=== PATIENT | female | born 1975 | race Caucasian/White ===

== ENCOUNTER 2017-03-22 18:58 | Emergency (ER) | payer BC ==
--- NOTE | 2017-03-22 19:13 | UC ---
Lower Extremity/Ankle HPI - HPI Summary HPI Summary: Patient stibbed the right 5th toe, nail is bloody, pain extends down the 5th metatarsal. 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 Metronidazole [From Flagyl] Allergy Intermediate Hives Verified 03/22/17 19:25 Home Medications: Home Medications Folic Acid TAB* [Folvite TAB*] 1 tab DAILY 03/22/17 [History Confirmed 03/22/17] Hydroxychloroquine TAB* [Plaquenil TAB*] 200 mg BID 03/22/17 [History Confirmed 03/22/17] Methotrexate TAB* 8 tab WEEKLY 03/22/17 [History Confirmed 03/22/17] PMH/Surg Hx/FS Hx/Imm Hx Previously Healthy: Yes - Surgical History Surgical History: None - Family History Known Family History: Positive: Hypertension - Social History Alcohol Use: None Substance Use Type: None Smoking Status (MU): Former Smoker When Did the Patient Quit Smoking/Using Tobacco: 2005 Review of Systems Constitutional: Negative Skin: Bruising - of right little toe Eyes: Negative ENT: Negative Respiratory: Negative Cardiovascular: Negative Gastrointestinal: Negative Genitourinary: Negative Motor: Negative Musculoskeletal: Arthralgia, Edema, Myalgia Neurological: Negative Psychological: Negative Is Patient Immunocompromised?: No All Other Systems Reviewed And Are Negative: Yes Physical Exam Triage Information Reviewed: Yes Appearance: Well-Appearing, Well-Nourished, Pain Distress Vital Signs Reviewed: Yes Eye Exam: Normal ENT Exam: Normal Dental Exam: Normal Neck exam: Normal Respiratory Exam: Normal Respiratory: Positive: Chest non-tender, Lungs clear, Normal breath sounds Cardiovascular Exam: Normal Cardiovascular: Positive: RRR, No Murmur, Pulses Normal Abdominal Exam: Normal Abdomen Description: Positive: Nontender, No Organomegaly, Soft Bowel Sounds: Positive: Present Musculoskeletal Exam: Normal Musculoskeletal: Positive: Strength Intact, ROM Intact, No Edema Neurological Exam: Normal Neurological: Positive: Alert, Muscle Tone Normal Psychological Exam: Normal Skin Exam: Normal Lower Extremity Course/Dx - Course Course Of Treatment: hx obtained, exam performed ,meds reviewed, xray obtained neg - Differential Dx/Diagnosis Differential Diagnosis/HQI/PQRI: Contusion, Dislocation, Fracture (Closed), Sprain, Strain Provider Diagnoses: 5th toe contusion Discharge - Discharge Plan Condition: Stable Disposition: HOME Patient Education Materials: Foot Contusion (ED) Referrals: Elizabeth Hazel MD [Primary Care Provider] - Additional Instructions: 1. use the post op shoe for support 2. ibuprofen for pain 3. soak the foot and keep clean, you may lose the nail.let if fall off on its own. 4. your xray was negative for any fracture 5. rest and elevate as much as possible
--- NOTE | 2017-03-22 19:28 | RAD ---
HISTORY: Right foot fifth digit pain, trauma COMPARISONS: October 24, 2015 VIEWS: 3, Frontal, lateral, and oblique views of the right foot FINDINGS: BONE DENSITY: Normal. BONES: Again noted are sharply marginated erosions at the base of the fifth metatarsal, stable from the previous examination. There is nonacute displaced fracture or dislocation. Calcaneal enthesophytes are noted. JOINTS: There is no arthropathy. ALIGNMENT: There is no dislocation. SOFT TISSUES: Unremarkable. OTHER FINDINGS: None. IMPRESSION: STABLE SHARPLY MARGINATED EROSIONS OF THE BASE OF THE FIFTH METATARSAL. NO ACUTE OSSEOUS INJURY. IF SYMPTOMS PERSIST, RECOMMEND REPEAT IMAGING
[2017-03-22 19:32] VITALS: BP 128/81
== END 2017-03-22 19:46 | disposition home or self-care (01) ==
LOC: UCCORT 18:58
DX: S90.121A Contusion of right lesser toe(s) without damage to nail, initial encounter (principal); W22.09XA Striking against other stationary object, initial encounter; Y93.9 Activity, unspecified; Y92.9 Unspecified place or not applicable; Z87.891 Personal history of nicotine dependence
CPT/HCPCS: 99213; G0463

== ENCOUNTER 2018-01-29 13:07 | Emergency (ER) | payer BC ==
--- OUTSIDE RECORDS SUMMARY | 2018-01-29 13:16 | XMS REPORT ---
:1975 Author Organization [facility] Address [address] [place] [address] Care Team Providers Name Role Phone Cindy Garay Unavailable Unavailable PROBLEMS Type Condition ICD9-CM OCZ11-RQ Onset Condition SNOMED Code Code Code Dates Status Problem Phlebitis and I80.9 Active 197189547 thrombophlebitis of unspecified site Problem Polycystic ovarian E28.2 Active 38131697 syndrome Problem Lichen simplex L28.0 Active 12060674 chronicus Problem Nontoxic goiter, E04.9 Active 540027272 unspecified Problem Obesity, unspecified E66.9 Active 402088587 Problem Excessive and N92.0 Active 268951971 frequent menstruation with regular cycle Problem Subacute and chronic N76.3 Active 044414961 vulvitis ALLERGIES No Information ENCOUNTERS Encounter Location Date Diagnosis [facility] 103 Nov, [place] [id number] [facility] 103 Nov, Lichen simplex chronicus OBGYN [facility], L28.0 [place] [id number] [facility] 103 Nov, [place] [id number] [facility] 103 Dec, Encounter for OBGYN [facility], gynecological examination [place] [id number] (general) (routine) without abnormal findings Z01.419 ; Lichen simplex chronicus L28.0 ; Excessive and frequent menstruation with regular cycle N92.0 ; Encounter for screening mammogram for malignant neoplasm of breast Z12.31 and Polycystic ovarian syndrome E28.2 [facility] 103 Dec, OBGYN [facility], [place] [id number] [facility] 103 Nov, Excessive and frequent OBGYN [facility], menstruation with regular [place] 4739[address] cycle N92.0 [facility] [place] [facility] 103 Oct, OBGYN [facility], [place] [id number] [facility] 103 Oct, Lichen simplex chronicus OBGYN [facility], L28.0 and Excessive and [place] 761178148 frequent menstruation with regular cycle N92.0 [place] [facility] 103 Aug, Noninflammatory disorder OBGYN [facility], of vulva and perineum, [place] [id number] unspecified N90.9 [place] [facility] 103 Aug, Excessive and frequent OBGYN [facility], menstruation with regular [place] 9264522[address] cycle N92.0 and Subacute and chronic vulvitis N76.3 [facility] [address] [place], Aug, [facility] [place] [id number] [facility] Aug, Encounter for other OBGYN [facility], general counseling and [place] [id number] advice on contraception Z30.09 [place] [facility] 103 Aug, Excessive and frequent OBGYN [facility], menstruation with regular [place] [address] cycle N92.0 [place] [facility] 103 July, OBGYN [facility], [place] [id number] [place] [facility] 103 July, Excessive and frequent OBGYN [facility], menstruation with regular [place] [address]78[address] cycle N92.0 [place] [facility] 103 July, Excessive and frequent OBGYN [facility], menstruation with [place] [address] irregular cycle N92.1 [place] [facility] 103 July, [place] [id number] [facility] 103 July, Excessive and frequent OBGYN [facility], menstruation with regular [place] 343810675 cycle N92.0 ; Dysuria R30.0 and Acute vaginitis N76.0 [place] [facility] 103 Jun, [place] [id number] [facility] 103 Jan, [place] [id number] [place] [facility] 103 Jan, [place] [id number] [place] [facility] 103 Jan, Irregular menstruation, OBGYN [facility], unspecified N92.6 ; [place] [id number] Encounter for screening for infections with a predominantly sexual mode of transmission Z11.3 and Subacute and chronic vulvitis N76.3 [place] [facility] 103 18 Sep, 2015 [facility] [place] [id number] advice on contraception Z30.09 [place] [facility] 21 Aug, 2015 Encounter for [facility], gynecological examination [place] [id number] (general) (routine) without abnormal findings Z01.419 ; Encounter for screening mammogram for malignant neoplasm of breast Z12.31 ; Nontoxic goiter, unspecified E04.9 and Obesity, unspecified E66.9 [place] [facility] 103 13 Aug, 2015 [place] [id number] [place] [facility] 103 Dec, [place] [id number] [facility] 103 Nov, [facility] 112.1 [place] [id number] [place] [facility] 103 Oct, VAGINAL DISCHARGE 623.5 OBGYN [facility], and Vulvitis NOS 616.10 [place] [id number] [place] [facility] 103 Mar, ROUTINE LEARN TO SWIM INSTRUCTOR EXAMINATION OBGYN [facility], V72.31 ; STD Screen V74.5 [place] [id number] and CONTRACEPTIVE MANGMT NOS V25.9 [place] [facility] 103 Mar, [place], [place] [id number] [facility] 103 Mar, [place], [place] [id number] [facility] 103 Dec, [place] [id number] [facility] 103 Dec, [place] [id number] [place] [facility] 103 Dec, STD Screen V74.5 and OBGYN [facility], Infection by Trichomonas [place] [id number] NOS 131.9 [place] [facility] 103 Oct, [place] [id number] [facility] 103 Oct, [place] [id number] [facility] [place] [facility] 103 Aug, [place] [id number] [place] [facility] 103 Aug, Vaginitis 616.10 and OBGYN [facility], Candidal vulvovaginitis [place] [id number] 112.1 [place] [facility] 103 July, VAGINAL DISCHARGE 623.5 [place], [place] [id number] [facility] [place] [facility] 103 Apr, [place], [place] [id number] [facility] 103 Mar, Abnormal findings on OBGYN [facility], radiological or other [place] [id number] exams of body structure, NEC 793.99 and BMI 39.0-39.9,ADULT V85.39 [facility] 103 Mar, Abnormal findings on OBGYN [facility], radiological or other [place] [id number] exams of body structure, NEC 793.99 and BMI 40 AND OVER,ADULT V85.4 [facility] 103 Jan, ROUTINE LEARN TO SWIM INSTRUCTOR EXAMINATION OBGYN [facility], V72.31 ; BMI [place] [id number] 39.0-39.9,ADULT V85.39 and Abnormal findings on radiological or other exams of body structure, NEC 793.99 [facility] 103 Jan, ROUTINE LEARN TO SWIM INSTRUCTOR EXAMINATION OBGYN [facility], V72.31 ; PAP SMEAR W/O LEARN TO SWIM INSTRUCTOR [place] [id number] EXAM V76.2 and SCREEN MAMMOGRAM NEC V76.12 [facility] 103 Dec, Metrorrhagia 626.6 ; OBGYN [facility], Endometrial polyp 621.0 [place] [id number] and Polycystic ovaries 256.4 [facility] 103 Aug, Metrorrhagia 626.6 ; OBGYN [facility], Endometrial polyp 621.0 [place] [id number] and Polycystic ovaries 256.4 [facility], [facility] [address] [place], July, Medical Center [place] [id number] [facility] 103 July, Metrorrhagia 626.6 ; OBGYN [facility], Endometrial polyp 621.0 [place] [id number] and Polycystic ovaries 256.4 [facility] 103 Jun, OBGYN [facility], [place] [id number] [facility] 103 Jun, Metrorrhagia 626.6 ; OBGYN [facility], Endometrial polyp 621.0 [place] [id number] and Polycystic ovaries 256.4 [place] [facility] 103 Jun, IRREGULAR MENSTRUATION OBGYN [facility], 626.4 [place] [id number] [place] [facility] 103 Jun, IRREGULAR MENSTRUATION OBGYN [facility], 626.4 [place] [id number] [place] [facility] 103 Jun, IRREGULAR MENSTRUATION OBGYN [facility], 626.4 and Endometrial [place] [id number] polyp 621.0 [place] [facility] 103 May, IRREGULAR MENSTRUATION OBGYN [facility], 626.4 [place] [id number] [place] [facility] 103 Dec, ROUTINE LEARN TO SWIM INSTRUCTOR EXAMINATION OBGYN [facility], V72.31 [place] [id number] [place] [facility] 103 Nov, [place] [id number] [place] [facility] 103 Oct, [place], [place] [id number] [facility] [place] [facility] 103 July, Yeast infection 112.9 [place]BG[place], [place] [id number] [place] [facility] 103 Oct, ROUTINE LEARN TO SWIM INSTRUCTOR EXAMINATION OBGYN [facility], V72.31 [place] [id number] [place] [facility] 103 Aug, BMI 38.0-38.9,ADULT V85.38 [place] [id number] [place] [facility] 103 Aug, BMI 39.0-39.9,ADULT V85.39 OBGYN [facility], and Polycystic ovaries [place] [id number] 256.4 [place] [facility] 103 Aug, ROUTINE LEARN TO SWIM INSTRUCTOR EXAMINATION OBGYN [facility], V72.31 and BMI [place] [id number] 38.0-38.9,ADULT V85.38 [place] [facility] 103 Oct, OBGYN [facility], [place] [id number] [place] [facility] 103 Aug, Polycystic ovaries 256.4 OBGYN [facility], and BMI 40 AND OVER,ADULT [place] [id number] V85.4 [place] [facility] 103 Aug, BMI 40 AND OVER, ADULT OBGYN [facility], V85.4 and Polycystic [place] [id number] ovaries 256.4 [place] [facility] 103 Aug, ROUTINE LEARN TO SWIM INSTRUCTOR EXAMINATION OBGYN [facility], V72.31 and BMI 40 AND [place] 782331040 OVER,ADULT V85.4 [place] [facility] 103 Oct, Dysuria 788.1 and Acute OBGYN [facility], vaginitis 616.10 [place] [id number] [place] [facility] 103 Aug, [place] [id number] [place] [facility] 103 Aug, ROUTINE LEARN TO SWIM INSTRUCTOR EXAMINATION OBGYN [facility], V72.31 ; Hypertension [place] [id number] 401.9 ; Hyperlipidemia 272.4 and Depression, major NOS 296.00 [place] [facility] 103 Aug, [place] [id number] [place] [facility] 103 July, Lichen sclerosus et OBGYN [facility], atrophicus NOS 701.0 [place] [id number] [place] [facility] 103 Jan, [place] [id number] [place] [facility] 103 Nov, [place] [id number] [place] [facility] 103 Oct, [place] [id number] [place] [facility] 103 Oct, O[place] [id number] [place] [facility] 103 Aug, [facility]rocystic disease of [facility], breast 610.1 and [place] [id number] DEPRESSION 648.44 [place] [facility] 103 Aug, [place] [id number] [place] [facility] 103 Aug, ROUTINE LEARN TO SWIM INSTRUCTOR EXAMINATION OBN [facility], V72.31 ; Incontinence [place] [id number] 788.30 and DEPRESSION 648.44 [place] [facility] 103 Apr, [place] [id number] [place] [facility] 103 Apr, CARE- ROUTINE OBN [facility], V24.2 and Hypertension [place] [id number] 401.9 [place] [facility] 103 Mar, [place] [id number] [place] [facility] 103 Mar, Cracked nipple, OBN [facility], 676.14 ; Hypertension [place] [id number] 401.9 and Rash 782.1 [place] [facility] 103 Mar, [place] [id number] [place] [facility] 103 Mar, [facility]ohydramnios, [facility], antepartum 658.03 and [place] [id number] Chronic hypertension NOS complicating , antepartum 642.03 [facility] 103 Mar, Oligohydramnios, [facility], antepartum 658.03 and [place] [id number] Chronic hypertension NOS complicating , antepartum 642.03 [facility] 103 Mar, [place] [id number] [place] [facility] 103 Mar, [place] [id number] [place] [facility] 103 Mar, [place] [id number] [place] [facility] 103 Mar, Oligohydramnios, [facility], antepartum 658.03 and [place] [id number] Chronic hypertension NOS complicating , antepartum 642.03 [place] [facility] 103 Mar, [place] [id number] [place] [facility] 103 Mar, Hypertension 401.9 and [facility], Chronic hypertension NOS [place] [id number] complicating , antepartum 642.03 [place] [facility] 103 Jan, [place] [id number] [place] [facility] 103 Jan, Chronic hypertension NOS [facility], complicating , [place] [id number] antepartum 642.03 and Hypertension 401.9 [place] [facility] 103 Jan, [place] [id number] [place] [facility] 103 Jan, [place] [id number] [place] [facility] 103 Jan, [place] [id number] [facility] 103 Jan, Hypertension 401.9 and [facility], Chronic hypertension NOS [place] [id number] complicating , antepartum 642.03 [facility] 103 Jan, [place] [id number] [facility] 103 Jan, Hypertension 401.9 [place] [id number] [place] [facility] 103 Jan, UTI/Vaginitis in [facility], , antepartum [place] [id number] condition or complication 646.63 [place] [facility] 103 Jan, [place], [place] [id number] [place] [facility] 103 Jan, [place], [place] [id number] [facility] 103 Jan, [place], [place] [id number] [place] [facility] 103 Jan, [place] [id number] [place] [facility] 103 Jan, [place] [id number] [place] [facility] 103 Jan, [place] [id number] [place] [facility] 103 Jan, [place] [id number] [place] [facility] 103 Jan, [place] [id number] [place] [facility] 103 Jan, Hypertension 401.9 [place] [id number] [facility] 103 Jan, Hypertension 401.9 [place] [id number] [place] [facility] 103 Dec, [place] [id number] [place] [facility] 103 Dec, [place] [id number] [place] [facility] 103 Dec, [place] [id number] [facility] 103 Nov, [place] [id number] [place] [facility] 103 15 Nov, 2005 [place] [id number] [place] [facility] 103 Nov, /OTHER ANTE. OBGYN [facility], SCREENING V28.8 [place] [id number] [place] [facility] 103 Oct, /OTHER ANTE. OBGYN [facility], SCREENING V28.8 [place] [id number] [place] [facility] 103 Aug, Hypertension 401.9 and do OBGYN [facility], not use UNCERTAIN [place] [id number] GEST./CONFIRM VIABILITY 656.83 [place] [facility] 103 Aug, [place] [id number] [place] [facility] 103 Aug, [place] [id number] [place] [facility] 103 Aug, [place] [id number] [place] [facility] 103 Aug, [place] [id number] UNKNOWN Mar, [place] [facility] 103 Jan, Lichen sclerosus et OBGYN [facility], atrophicus of the vulva [place] [id number] 624.0 [place] [facility] 103 Jan, Lichen sclerosus et OBGYN [facility], atrophicus of the vulva [place] [id number] 624.0 and Rash 782.1 UNKNOWN Jan, [place] [facility] 103 Jan, DERMATITIS NEC 692.89 and OBGYN [facility], Boil of skin and [place] 444532989 subcutaneous tissue NOS 680.9 [place] [facility] 103 Jan, OVARIAN CYST NEC/ NOS 620.2 [place], [place] [id number] [facility] 103 Jan, Vaginitis and OBGYN [facility], vulvovaginitis, [place] [id number] unspecified 616.10 [facility] 103 Dec, OVARIAN CYST NEC/ NOS 620.2 OBGYN [facility], and Hypertension 401.9 [place] [id number] [facility] 103 Dec, OVARIAN CYST NEC/ NOS 620.2 OBGYN [facility], [place] [id number] [facility] 103 Dec, Well Adult exam V 70.0 ; OBGYN [facility], ROUTINE LEARN TO SWIM INSTRUCTOR EXAMINATION [place] [id number] V72.31 ; OVARIAN CYST NEC/NOS 620.2 ; Infertility, female, of other specified origin 628.8 and Hypertension 401.9 IMMUNIZATIONS No Known Immunizations SOCIAL HISTORY Never Assessed REASON FOR REFERRAL FUNCTIONAL STATUS PLAN OF CARE VITAL SIGNS MEDICATIONS Unknown Medications PROCEDURES No Known procedures RESULTS No Results REASON FOR VISIT lmtcb 12/23, LMB 01/02/18 Insurance Providers [facility] Health Member Patient Patient Patient Patient Patient Subscriber Subscriber Subscriber Group Insurance Plan Plan Plan Plan ID Relationship Address Phone Name Date of ID Name Date of No Type Insurance Insurance Insurance Coverage to Subscriber Address Phone Name Dates [facility] [phone] [facility] self Leila [id number] [place] [address] [facility] [address] MEDICAL (GENERAL) HISTORY Type Description Date Medical History hepatitis A Medical History hypertension Medical History depression Medical History Sprained neck and shoulder Medical History Psoriasis Medical History High cholesterol Medical History morbid obesity Medical History Metrorrhagia Medical History Metrorrhagia Medical History Endometrial polyp Medical History contact dermatitis and body acne Medical History Lupus Medical History RA Surgical History Hysteroscopy/D&C 07-15-12 Surgical History hysteroscopy, D&C 08/27/16 Hospitalization History allergic reaction to med. 10/2007 Hospitalization History mono 10/2007 Hospitalization History childbirth
--- OUTSIDE RECORDS SUMMARY | 2018-01-29 13:17 | XMS REPORT ---
:1975 Author Organization [facility] O[facility] Address [address] [place] [address] Care Team Providers Name Role Phone Cindy Garay Unavailable Unavailable PROBLEMS Type Condition ICD9-CM [id number] Onset Condition SNOMED Code Code Code Dates Status Problem Phlebitis and I80.9 Active 218891421 thrombophlebitis of unspecified site Problem Polycystic ovarian E28.2 Active 15713011 syndrome Problem Lichen simplex L28.0 Active 72254774 chronicus Problem Nontoxic goiter, E04.9 Active 467667043 unspecified Problem Obesity, unspecified E66.9 Active 030833213 Problem Excessive and N92.0 Active 357416097 frequent menstruation with regular cycle Problem Subacute and chronic N76.3 Active 905274651 vulvitis ALLERGIES No Information ENCOUNTERS Encounter Location Date Diagnosis [facility] 103 Nov, OBGYN [place], [place] [id number] [facility] 103 Nov, Lichen simplex chronicus OBGYN [facility], L28.0 [place] [id number] [facility] 103 Nov, OBGYN [place], [place] [id number] [facility] 103 Dec, Encounter for OBGYN [facility], gynecological examination [place] [id number] (general) (routine) without abnormal findings Z01.419 ; Lichen simplex chronicus L28.0 ; Excessive and frequent menstruation with regular cycle N92.0 ; Encounter for screening mammogram for malignant neoplasm of breast Z12.31 and Polycystic ovarian syndrome E28.2 [facility] 103 Dec, OBGYN [facility], [place] [id number] [facility] 103 Nov, Excessive and frequent OBGYN [facility], menstruation with regular [place] [id number] cycle N92.0 [facility] 103 Oct, OBGYN [facility], [place] [id number] [facility] 103 Oct, Lichen simplex chronicus OBGYN [facility], L28.0 and Excessive and [place] [address] frequent menstruation with regular cycle N92.0 [facility] 103 Aug, Noninflammatory disorder OBGYN [facility], of vulva and perineum, [place] [id number] unspecified N90.9 [facility] 103 Aug, Excessive and frequent OBGYN [facility], menstruation with regular [place] [id number] cycle N92.0 and Subacute and chronic vulvitis N76.3 [facility] [address] [place], Aug, [place] [id number] [facility] Aug, Encounter for other OBGYN [facility], general counseling and [place] [id number] advice on contraception Z30.09 [facility] 103 Aug, Excessive and frequent OBGYN [facility], menstruation with regular [place] [address] cycle N92.0 [facility] 103 July, OBGYN [facility], [place] [id number] [facility] 103 July, Excessive and frequent OBGYN [facility], menstruation with regular [place] [address] cycle N92.0 [facility] 103 July, Excessive and frequent OBGYN [facility], menstruation with [place] [address]394 irregular cycle N92.1 [facility] 103 July, OBGYN [place], [place] [id number] [facility] 103 July, Excessive and frequent OBGYN [facility], menstruation with regular [place] [id number] cycle N92.0 ; Dysuria R30.0 and Acute vaginitis N76.0 [facility] 103 Jun, OBGYN [place] [id number] [facility] 103 Jan, [place] [id number] [facility] 103 Jan, [place] [id number] [facility] 103 Jan, Irregular menstruation, OBGYN [facility], unspecified N92.6 ; [place] [id number] Encounter for screening for infections with a predominantly sexual mode of transmission Z11.3 and Subacute and chronic vulvitis N76.3 [facility] 103 18 Sep, 2015 [facility] and [place] [id number] advice on contraception Z30.09 [facility] 103 21 Aug, 2015 Encounter for [facility], gynecological examination [place] [id number] (general) (routine) without abnormal findings Z01.419 ; Encounter for screening mammogram for malignant neoplasm of breast Z12.31 ; Nontoxic goiter, unspecified E04.9 and Obesity, unspecified E66.9 [facility] 103 13 Aug, 2015 [place] [id number] [facility] 103 Dec, [place] [id number] [facility] 103 Nov, [facility] 112.1 [place] [id number] [facility] 103 Oct, VAGINAL DISCHARGE 623.5 OBGYN [facility], and Vulvitis NOS 616.10 [place] [id number] [facility] 103 Mar, ROUTINE CAP COVERER EXAMINATION OBGYN [facility], V72.31 ; STD Screen V74.5 [place] [id number] and CONTRACEPTIVE MANGMT NOS V25.9 [facility] 103 Mar, OBG[place] [id number] [facility] 103 Mar, OBG[place] [id number] [facility] 103 Dec, [place] [id number] [facility] 103 Dec, [place] [id number] [facility] 103 Dec, STD Screen V74.5 and OBGYN [facility], Infection by Trichomonas [place] [id number] NOS 131.9 [facility] 103 Oct, OBG[place], [place] [id number] [facility] 103 Oct, OBG[place] [id number] [facility] 103 Aug, OBG[place] [id number] [facility] 103 Aug, Vaginitis 616.10 and OBGYN [facility], Candidal vulvovaginitis [place] [id number] 112.1 [facility] 103 July, VAGINAL DISCHARGE 623.5 OBGYN [place] [id number] [facility] 103 Apr, OBG[place], [place] [id number] [facility] 103 Mar, Abnormal findings on OBGYN [facility], radiological or other [place] [id number] exams of body structure, NEC 793.99 and BMI 39.0-39.9,ADULT V85.39 [facility] 103 Mar, Abnormal findings on OBGYN [facility], radiological or other [place] [id number] exams of body structure, NEC 793.99 and BMI 40 AND OVER,ADULT V85.4 [facility] 103 Jan, ROUTINE CAP COVERER EXAMINATION OBGYN [facility], V72.31 ; BMI [place] [id number] 39.0-39.9,ADULT V85.39 and Abnormal findings on radiological or other exams of body structure, NEC 793.99 [facility] 103 Jan, ROUTINE CAP COVERER EXAMINATION OBGYN [facility], V72.31 ; PAP SMEAR W/O CAP COVERER [place] [id number] EXAM V76.2 and SCREEN MAMMOGRAM NEC V76.12 [facility] 103 Dec, Metrorrhagia 626.6 ; OBGYN [facility], Endometrial polyp 621.0 [place] [id number] and Polycystic ovaries 256.4 [facility] 103 Aug, Metrorrhagia 626.6 ; OBGYN [facility], Endometrial polyp 621.0 [place] [id number] and Polycystic ovaries 256.4 [facility] [address] [place], July, [place] [id number] [facility] 103 July, Metrorrhagia 626.6 ; OBGYN [facility], Endometrial polyp 621.0 [place] [id number] and Polycystic ovaries 256.4 [facility] 103 Jun, OBGYN [facility], [place] [id number] [facility] 103 Jun, Metrorrhagia 626.6 ; OBGYN [facility], Endometrial polyp 621.0 [place] [id number] and Polycystic ovaries 256.4 [facility] 103 Jun, IRREGULAR MENSTRUATION OBGYN [facility], 626.4 [place] [id number] [facility] 103 Jun, IRREGULAR MENSTRUATION OBGYN [facility], 626.4 [place] [id number] [facility] 103 Jun, IRREGULAR MENSTRUATION OBGYN [facility], 626.4 and Endometrial [place] 53[address] polyp 621.0 [facility] 103 May, IRREGULAR MENSTRUATION OBGYN [facility], 626.4 [place] [id number] [facility] 103 Dec, ROUTINE CAP COVERER EXAMINATION OBGYN [facility], V72.31 [place] [id number] [facility] 103 Nov, OBG[place] [id number] [facility] 103 Oct, OBG[place] [address] [facility] 103 July, Yeast infection 112.9 OBGYN [place], [place] [id number] [facility] 103 Oct, ROUTINE CAP COVERER EXAMINATION OBGYN [facility], V72.31 [place] [id number] [facility] 103 Aug, BMI 38.0-38.9,ADULT V85.38 OBGYN [place], [place] [id number] [facility] 103 Aug, BMI 39.0-39.9,ADULT V85.39 OBGYN [facility], and Polycystic ovaries [place] [id number] 256.4 [facility] 103 Aug, ROUTINE CAP COVERER EXAMINATION OBGYN [facility], V72.31 and BMI [place] [id number] 38.0-38.9,ADULT V85.38 [facility] 103 Oct, OBGYN [facility], [place] [id number] [facility] 103 Aug, Polycystic ovaries 256.4 OBGYN [facility], and BMI 40 AND OVER,ADULT [place] [id number] V85.4 [facility] 103 Aug, BMI 40 AND OVER, ADULT OBGYN [facility], V85.4 and Polycystic [place] 4280636[address] ovaries 256.4 [facility] 103 Aug, ROUTINE CAP COVERER EXAMINATION OBGYN [facility], V72.31 and BMI 40 AND [place] 8965738[address] OVER,ADULT V85.4 [facility] 103 Oct, Dysuria 788.1 and Acute OBGYN [facility], vaginitis 616.10 [place] [id number] [facility] 103 Aug, OBG[place] [id number] [facility] 103 Aug, ROUTINE CAP COVERER EXAMINATION OBGYN [facility], V72.31 ; Hypertension [place] [id number] 401.9 ; Hyperlipidemia 272.4 and Depression, major NOS 296.00 [facility] 103 Aug, OBGYN [place], [place] [address] [facility] 103 July, Lichen sclerosus et OBGYN [facility], atrophicus NOS 701.0 [place] [id number] [facility] 103 Jan, OBG[place] [id number] [facility] 103 Nov, OBG[place], [place] [id number] [facility] 103 Oct, OBG[place] [id number] [facility] 103 Oct, OBN [place] [id number] [facility] 103 Aug, [facility]stic disease [facility], breast 610.1 and [place] [id number] DEPRESSION 648.44 [facility] 103 Aug, [place] [id number] [facility] 103 Aug, ROUTINE CAP COVERER EXAMINATION OBN [facility], V72.31 ; Incontinence [place] [id number] 788.30 and DEPRESSION 648.44 [facility] 103 Apr, [place] [id number] [facility] 103 Apr, CARE- ROUTINE OBN [facility], V24.2 and Hypertension [place] [id number] 401.9 [facility] 103 Mar, [place] [address] [facility] 103 Mar, Cracked nipple, OBN [facility], 676.14 ; Hypertension [place] [id number] 401.9 and Rash 782.1 [facility] 103 Mar, [place] [id number] [facility] 103 Mar, Oligohydramnios, [facility], antepartum 658.03 and [place] [id number] Chronic hypertension NOS complicating , antepartum 642.03 [facility] 103 Mar, Oligohydramnios, [facility], antepartum 658.03 and [place] [id number] Chronic hypertension NOS complicating , antepartum 642.03 [facility] 103 Mar, [place] [id number] [facility] 103 Mar, [place] [id number] [facility] 103 Mar, [place] [id number] [facility] 103 Mar, Oligohydramnios, [facility], antepartum 658.03 and [place] 38487[address] Chronic hypertension NOS complicating , antepartum 642.03 [facility] 103 Mar, [place] [id number] [facility] 103 Mar, Hypertension 401.9 and [facility], Chronic hypertension NOS [place] [id number] complicating , antepartum 642.03 [facility] 103 Jan, [place] [id number] [facility] 103 Jan, Chronic hypertension NOS [facility] complicating , [place] [id number] antepartum 642.03 and Hypertension 401.9 [facility] 103 Jan, [place] [id number] [facility] 103 Jan, [place] [id number] [facility] 103 Jan, [place] [address] [facility] 103 Jan, Hypertension 401.9 and [facility], Chronic hypertension NOS [place] [id number] complicating , antepartum 642.03 [facility] 103 Jan, [place] [id number] [facility] 103 Jan, Hypertension 401.9 [place] [address] [facility] 103 Jan, [facility]TI/[facility]initis [facility], , antepartum [place] [id number] condition or complication 646.63 [facility] 103 Jan, OBN [place] [address] [facility] 103 Jan, OBG[place], [place] [address] [facility] 103 Jan, OBN [place] [address] [facility] 103 Jan, [place] [address] [facility] 103 Jan, [place] [address] [facility] 103 Jan, [place] [id number] [facility] 103 Jan, [place] [id number] [facility] 103 Jan, [place] [id number] [facility] 103 Jan, Hypertension 401.9 [place] [id number] [facility] 103 Jan, Hypertension 401.9 [place] [address] [facility] 103 Dec, [place] [address] [facility] 103 Dec, [place] [address] [facility] 103 Dec, [place] [id number] [facility] 103 Nov, [place] [address] [facility] 103 15 Nov, 2005 OBG[place] [id number] [facility] 103 Nov, /OTHER ANTE. OBGYN [facility], SCREENING V28.8 [place] [id number] [facility] 103 Oct, /OTHER ANTE. OBGYN [facility], SCREENING V28.8 [place] [id number] [facility] 103 Aug, Hypertension 401.9 and do OBGYN [facility], not use UNCERTAIN [place] [id number] GEST./CONFIRM VIABILITY 656.83 [facility] 103 Aug, [place] [address] [facility] 103 Aug, [place] [id number] [facility] 103 Aug, [place] [address] [facility] 103 Aug, [place] [id number] UNKNOWN Mar, [facility] 103 Jan, Lichen sclerosus et OBGYN [facility], atrophicus of the vulva [place] 259[address]8499 624.0 [facility] 103 Jan, Lichen sclerosus et OBGYN [facility], atrophicus of the vulva [place] 758176537 624.0 and Rash 782.1 UNKNOWN Jan, [facility] 103 Jan, DERMATITIS NEC 692.89 and OBGYN [facility], Boil of skin and [place] 58[address] subcutaneous tissue NOS 680.9 [facility] 103 Jan, OVARIAN CYST NEC/ NOS 620.2 OBGYN [place], [place] [id number] [facility] 103 18 Jan, 2005 Vaginitis and OBGYN [facility], vulvovaginitis, [place] 87[address] unspecified 616.10 [facility] 103 Dec, OVARIAN CYST NEC/ NOS 620.2 OBGYN [facility], and Hypertension 401.9 [place] [id number] [facility] 103 Dec, OVARIAN CYST NEC/ NOS 620.2 OBGYN [facility], [place] [id number] [facility] 103 Dec, Well Adult exam V 70.0 ; OBGYN [facility], ROUTINE CAP COVERER EXAMINATION [place] [id number] V72.31 ; OVARIAN CYST NEC/NOS 620.2 ; Infertility, female, of other specified origin 628.8 and Hypertension 401.9 IMMUNIZATIONS No Known Immunizations SOCIAL HISTORY Never Assessed REASON FOR REFERRAL FUNCTIONAL STATUS PLAN OF CARE VITAL SIGNS MEDICATIONS Unknown Medications PROCEDURES No Known procedures RESULTS No Results REASON FOR VISIT COM Sent 01/01/2018 Insurance Providers [facility] Member Patient Patient Patient Patient Patient Subscriber Subscriber Subscriber Group Insurance Plan Plan Plan Plan ID Relationship Address Phone Name Date of ID Name Date of No Type Insurance Insurance Insurance Coverage to Subscriber Address Phone Name Dates [facility] [phone] [facility] self Leila [id number] [place] [phone] [facility] [address] MEDICAL (GENERAL) HISTORY Type Description Date Medical [...]
[2018-01-29 13:20] VITALS: BP 126/61
--- NOTE | 2018-01-29 13:36 | UC ---
Respiratory Complaint HPI - HPI Summary HPI Summary: Pt presents with c/o cough, fatigue, malaise, chills X 4-5 days. Pt is has hx of lupus and rheumatoid arthritis - History of Current Complaint Chief Complaint: UCRespiratory Stated Complaint: RESPIRATORY COMPLAINT Time Seen by Provider: 01/29/18 13:19 Hx Obtained From: Patient Hx Last Menstrual Period: 01/01/18 ?: No Onset/Duration: Gradual Onset Timing: Constant Severity Initially: Mild Severity Currently: Moderate Pain Intensity: 3 Character: Cough: Nonproductive Aggravating Factors: Deep Breaths, Recumbent Position Alleviating Factors: Nothing Associated Signs And Symptoms: Positive: Chills, URI, Nasal Congestion - Risk Factors Pulmonary Embolism Risk Factors: Negative Pseudomonas Risk Factors: Negative Tuberculosis Risk Factors: Negative - Allergies/Home Medications Allergies/Adverse Reactions: Allergies Allergy/AdvReac Type Severity Reaction Status Date / Time cephalexin [From Keflex] Allergy Intermediate lymphadenop 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/18 13: 20 thy metronidazole [From Flagyl] Allergy Intermediate Hives 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/18 13:20 minocycline AdvReac drug 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/18 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 PMH/Surg Hx/FS Hx/Imm Hx Previously Healthy: Yes - lupus and rheumatoid arthritis - Surgical History Surgical History: None - Family History Known Family History: Positive: Hypertension - Social History Occupation: Employed Full-time Lives: With Family Alcohol Use: None Substance Use Type: None Smoking Status (MU): Former Smoker Have You Smoked in the Last Year: No When Did the Patient Quit Smoking/Using Tobacco: 2006 - Immunization History Most Recent Influenza Vaccination: no 2017 Review of Systems All Other Systems Reviewed And Are Negative: Yes Constitutional: Positive: Chills, Fatigue Skin: Positive: Negative Eyes: Positive: Negative ENT: Positive: Sore Throat, Ear Ache, Sinus Congestion Respiratory: Positive: Shortness Of Breath, Cough Cardiovascular: Positive: Negative Gastrointestinal: Positive: Negative Genitourinary: Positive: Negative Motor: Positive: Negative Neurovascular: Positive: Negative Musculoskeletal: Positive: Myalgia Neurological: Positive: Headache Psychological: Positive: Negative Is Patient Immunocompromised?: Yes - beign treated for RA and lupus Physical Exam Triage Information Reviewed: Yes Appearance: Ill-Appearing, Obese Vital Signs: Initial Vital Signs Temp 99.1 F 01/29/18 13:16 Pulse 78 01/29/18 13:16 Resp 18 01/29/18 13:16 BP 126/61 01/29/18 13:16 Pulse Ox 99 01/29/18 13:16 Vital Signs Reviewed: Yes Eye Exam: Normal ENT Exam: Other ENT: Positive: Nasal congestion Dental Exam: Normal Neck exam: Normal Respiratory: Positive: Decreased breath sounds Cardiovascular Exam: Normal Musculoskeletal Exam: Normal Neurological Exam: Normal Psychological Exam: Normal Skin Exam: Normal UC Diagnostic Evaluation - Laboratory O2 Sat by Pulse Oximetry: 99 Respiratory Course/Dx - Differential Dx/Diagnosis Differential Diagnosis/HQI/PQRI: Bronchitis, Influenza Provider Diagnosis: Bronchitis Discharge - Sign-Out/Discharge Documenting (check all that apply): Patient Departure All imaging exams completed and their final reports reviewed: No Studies - Discharge Plan Condition: Stable Disposition: HOME Prescriptions: Albuterol HFA INHALER* [Ventolin HFA Inhaler*] 1 puff INH Q6H PRN #1 mdi PRN Reason: Sob/Wheezing Azithromycin TAB* [Zithromax TAB (Z-DANN) 250 mg #6 tabs] 2 tab PO .TODAY, THEN 1 DAILY #1 dann Benzonatate CAP* [Tessalon 100 MG CAP*] 100 mg PO Q8H PRN #30 cap PRN Reason: Cough Patient Education Materials: Acute Bronchitis (ED) Forms: *Work Release Referrals: Elizabeth Hazel MD [Primary Care Provider] - 2 Days - Billing Disposition and Condition Condition: STABLE Disposition: Home - Attestation Statements Provider Attestation: [email or web address]
== END 2018-01-29 13:44 | disposition home or self-care (01) ==
LOC: UCCORT 13:07
DX: J40 Bronchitis, not specified as acute or chronic (principal); Z88.1 Allergy status to other antibiotic agents; Z87.891 Personal history of nicotine dependence
CPT/HCPCS: 99212; G0463

== ENCOUNTER 2018-03-07 11:10 | Emergency (ER) | payer BC ==
--- OUTSIDE RECORDS SUMMARY | 2018-03-07 11:18 | XMS REPORT ---
:1975 Author Organization [facility] Address [address] 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 672538424 unspecified Problem Obesity, unspecified E66.9 Active 714128154 Problem Excessive and N92.0 Active 614970103 frequent menstruation with regular cycle Problem Subacute and chronic N76.3 Active 780295572 vulvitis ALLERGIES No Information ENCOUNTERS Encounter Location Date Diagnosis [address] Jan, [facility] [address] [place], [place] [id number] [facility] Jan, [place] [id number] [facility] Nov, [place] [id number] [facility] 103 Nov, Lichen simplex chronicus OBGYN [facility] [place]28.[address] [place] [id number] [facility] Nov, [place]BG[place] [id number] [facility] 103 Dec, Encounter for OBGYN [facility], gynecological examination [place] [id number] (general) (routine) without abnormal findings Z01.419 ; Lichen simplex chronicus L28.0 ; Excessive and frequent menstruation with regular cycle N92.0 ; Encounter for screening mammogram for malignant neoplasm of breast Z12.31 and Polycystic ovarian syndrome E28.2 [place] [facility] Dec, OBG[place] [id number] [place] [facility] 103 Nov, Excessive and frequent OBGYN [facility], menstruation with regular [place] [address] cycle N92.0 [place] [facility] 103 Oct, [place]BG[place], [place] [id number] [place] [facility] 103 Oct, Lichen simplex chronicus OBGYN [facility], L28.0 and Excessive and [place] [address] frequent menstruation with regular cycle N92.0 [place] [facility] 103 Aug, Noninflammatory disorder OBGYN [facility], of vulva and perineum, [place] [id number] unspecified N90.9 [place] [facility] 103 Aug, Excessive and frequent OBGYN [facility], menstruation with regular [place] [address] cycle N92.0 and Subacute and chronic vulvitis N76.3 [facility] [address] [place], Aug, [place] [id number] [place] [facility] Aug, Encounter for other OBGYN [facility], general counseling and [place] [id number] advice on contraception Z30.09 [place] [facility] 103 Aug, Excessive and frequent OBGYN [facility], menstruation with regular [place] [address] cycle N92.0 [place] [facility] 103 July, [place]BG[place] [id number] [place] [facility] 103 July, Excessive and frequent OBGYN [facility], menstruation with regular [place] [address] cycle N92.0 [place] [facility] 103 July, Excessive and frequent OBGYN [facility], menstruation with [place] [address] irregular cycle N92.1 [place] [facility] 103 July, [place]BG[place] [id number] [place] [facility] 103 July, Excessive and frequent OBGYN [facility], menstruation with regular [place] [address] cycle N92.0 ; Dysuria R30.0 and Acute vaginitis N76.0 [place] [facility] 103 Jun, OBG[place] [id number] [place] [facility] 103 Jan, [place] [id number] [place] [facility] Jan, [place] [id number] [place] [facility] 103 Jan, [facility] unspecified N92.6 ; [place] [id number] Encounter for screening for infections with a predominantly sexual mode of transmission Z11.3 and Subacute and chronic vulvitis N76.3 [place] [facility] 18 Sep, 2015 Encounter for other OBGYN [facility], general counseling and [place] [id number] advice on contraception Z30.09 [place] [facility] 21 Aug, 2015 [facility] [place] [id number] (general) (routine) without abnormal findings Z01.419 ; Encounter for screening mammogram for malignant neoplasm of breast Z12.31 ; Nontoxic goiter, unspecified E04.9 and Obesity, unspecified E66.9 [place] [facility] 13 Aug, 2015 [place] [id number] [place] [facility] Dec, [place]BG[place] [id number] [place] [facility] Nov, Candidiasis of vagina [facility], 112.1 [place] [id number] [place] [facility] 103 Oct, VAGINAL DISCHARGE 623.5 OBGYN [facility], and Vulvitis NOS 616.10 [place] [id number] [place] [facility] 103 Mar, ROUTINE LOCK [facility]TER EXAMIN[facility], V72.31 ; STD Screen V74.5 [place] [id number] and CONTRACEPTIVE MANGMT NOS V25.9 [place] [facility] 103 Mar, [place] [id number] [place] [facility] Mar, [place] [address] [place] [facility] 103 Dec, [place] [id number] [place] [facility] 103 Dec, [place] [id number] [place] [facility] 103 Dec, STD Screen V74.5 and OBGYN [facility], Infection [place] 740[address]60[address] NOS 131.9 [place] [facility] Oct, [place]BG[place] [id number] [place] [facility] Oct, [place] [address] [place] [facility] 103 Aug, [place] [id number] [place] [facility] 103 Aug, Vaginitis 616.10 and OBGYN [facility], Candidal vulvovaginitis [place] [address] 112.1 [place] [facility] 103 July, VAGINAL DISCHARGE 623.5 OBG[place] [id number] [facility] 103 Apr, OBGYN [facility], [place] [id number] [facility] 103 Mar, Abnormal findings on OBGYN [facility], radiological or other [place] [address] exams of body structure, NEC 793.99 and BMI 39.0-39.9,ADULT V85.39 [facility] 103 Mar, Abnormal findings on OBGYN [facility], radiological or other [place] [address] exams of body structure, NEC 793.99 and BMI 40 AND OVER,ADULT V85.4 [facility] 103 Jan, ROUTINE LOCK SETTER EXAMINATION OBGYN [facility], V72.31 ; BMI [place] 894286311 39.0-39.9,ADULT V85.39 and Abnormal findings on radiological or other exams of body structure, NEC 793.99 [facility] 103 Jan, ROUTINE LOCK SETTER EXAMINATION OBGYN [facility], V72.31 ; PAP SMEAR W/O LOCK SETTER [place] [id number] EXAM V76.2 and SCREEN MAMMOGRAM NEC V76.12 [facility] 103 Dec, Metrorrhagia 626.6 ; OBGYN [facility], Endometrial polyp 621.0 [place] [id number] and Polycystic ovaries 256.4 [facility] 103 Aug, Metrorrhagia 626.6 ; OBGYN [facility], Endometrial polyp 621.0 [place] [id number] and Polycystic ovaries 256.4 [facility] [address] [place], July, [place] [id number] [facility] 103 July, Metrorrhagia 626.6 ; OBGYN [facility], Endometrial polyp 621.0 [place] [address] and Polycystic ovaries 256.4 [facility] 103 Jun, OBGYN [facility], [place] [id number] [place] [facility] 103 Jun, Metrorrhagia 626.6 ; OBGYN [facility], Endometrial polyp 621.0 [place] [address] and Polycystic ovaries 256.4 [place] [facility] 103 Jun, IRREGULAR MENSTRUATION OBGYN [facility], 626.4 [place] [id number] [place] [facility] 103 Jun, IRREGULAR MENSTRUATION OBGYN [facility], 626.4 [place] [id number] [place] [facility] 103 Jun, IRREGULAR MENSTRUATION OBGYN [facility], 626.4 and Endometrial [place] 12897[address] polyp 621.0 [place] [facility] 103 May, IRREGULAR MENSTRUATION OBGYN [facility], 626.4 [place] [id number] [place] [facility] 103 Dec, ROUTINE LOCK SETTER EXAMINATION OBGYN [facility], V72.31 [place] [id number] [place] [facility] 103 Nov, [place]BG[place] [id number] [place] [facility] 103 Oct, OBG[place] [address] [place] [facility] 103 July, Yeast infection 112.9 OBG[place] [address] [place] [facility] 103 Oct, ROUTINE LOCK SETTER EXAMINATION OBGYN [facility], V72.31 [place] [id number] [place] [facility] 103 Aug, BMI 38.0-38.9,ADULT V85.38 [place] [id number] [place] [facility] 103 Aug, BMI 39.0-39.9,ADULT V85.39 OBGYN [facility], and Polycystic ovaries [place] [id number] 256.4 [place] [facility] 103 Aug, ROUTINE LOCK SETTER EXAMINATION OBGYN [facility], V72.31 and BMI [place] 151394783 38.0-38.9,ADULT V85.38 [place] [facility] 103 Oct, OBGYN [facility], [place] [id number] [place] [facility] 103 Aug, Polycystic ovaries 256.4 OBGYN [facility], and BMI 40 AND OVER,ADULT [place] 96[address] V85.4 [place] [facility] 103 Aug, BMI 40 AND OVER, ADULT OBGYN [facility], V85.4 and Polycystic [place] 27[address] ovaries 256.4 [place] [facility] 103 Aug, ROUTINE LOCK SETTER EXAMINATION OBGYN [facility], V72.31 and BMI 40 AND [place] 379506135 OVER,ADULT V85.4 [place] [facility] 103 Oct, Dysuria 788.1 and Acute OBGYN [facility], vaginitis 616.10 [place] [id number] [place] [facility] 103 Aug, [place] [id number] [facility] Aug, ROUTINE LOCK SETTER EXAMINATION OBGYN [facility], V72.31 ; Hypertension [place] 046241263 401.9 ; Hyperlipidemia 272.4 and Depression, major NOS 296.00 [place] [facility] 103 Aug, [place] [id number] [place] [facility] 103 July, Lichen sclerosus et OBGYN [facility], atrophicus NOS 701.0 [place] [id number] [place] [facility] 103 Jan, [place] [id number] [place] [facility] 103 Nov, [place] [id number] [place] [facility] 103 Oct, [place] [address] [place] [facility] 103 Oct, [place] [id number] [place] [facility] 103 Aug, Fibrocystic disease of [facility], breast 610.1 and [place] [address] DEPRESSION 648.44 [place] [facility] 103 Aug, [place] [address] [place] [facility] 103 Aug, ROUTINE LOCK SETTER EXAMINATION [facility], V72.31 ; Incontinence [place] [id number] 788.30 and DEPRESSION 648.44 [place] [facility] 103 Apr, [place] [id number] [place] [facility] 103 Apr, CARE- ROUTINE [facility], V24.2 and Hypertension [place] 076626803 401.9 [place] [facility] 103 Mar, [place] [id number] [place] [facility] 103 Mar, Cracked nipple, OBN [facility], 676.14 ; Hypertension [place] 967719398 401.9 and Rash 782.1 [place] [facility] 103 Mar, [place] [id number] [place] [facility] 103 Mar, Oligohydramnios, [facility], antepartum 658.03 and [place] [id number] Chronic hypertension NOS complicating , antepartum 642.03 [place] [facility] 103 Mar, Oligohydramnios, [facility], antepartum 658.[address] 9590[address] Chronic hypertension NOS complicating , antepartum 642.03 [place] [facility] 103 Mar, [place] [id number] [place] [facility] 103 Mar, [place] [address] [place] [facility] 103 Mar, [place] [address] [place] [facility] 103 Mar, Oligohydramnios, [facility], antepartum 658.[address] 57[address] Chronic hypertension NOS complicating , antepartum 642.03 [facility] 103 Mar, [place] [address] [place] [facility] 103 Mar, Hypertension 401.9 and [facility], Chronic [place] 708804730 complicating , antepartum 642.03 [place] [facility] 103 Jan, [place] [id number] [place] [facility] 103 Jan, Chronic hypertension NOS [facility], complicating , [place] [address]40[address] antepartum 642.03 and Hypertension 401.9 [facility] 103 Jan, [place] [id number] [facility] 103 Jan, [place] [address] [facility] 103 Jan, [place] [address] [place] [facility] 103 Jan, Hypertension 401.9 and [facility], Chronic [place] N[place] 107514021 complicating , antepartum 642.03 [facility] 103 Jan, [place]BG[place] [id number] [facility] 103 Jan, Hypertension 401.9 O[place] [address] [place] [facility] 103 Jan, UTI/Vaginitis in OBN [facility], , antepartum [place] 082691845 condition or complication 646.63 [place] [facility] Jan, [place] [address] [facility] 103 Jan, [place] [address] [place] [facility] 103 Jan, [place] [id number] [place] [facility] 103 Jan, [place] [id number] [place] [facility] 103 Jan, [place]BG[place] [address] [place] [facility] 103 Jan, [place] [id number] [place] [facility] 103 Jan, [place] [id number] [facility] 103 Jan, OBG[place] [id number] [place] [facility] 103 Jan, Hypertension 401.9 O[place], [place] [id number] [place] [facility] 103 Jan, Hypertension 401.9 [place] [address] [place] [facility] 103 Dec, OBG[place], [place] [id number] [place] [facility] 103 Dec, [place] [address] [place] [facility] 103 Dec, OBG[place] [id number] [place] [facility] 103 Nov, OBG[place] [id number] [place] [facility] 103 Nov, OBG[place] [address] [place] [facility] Nov, /OTHER ANTE. OBGYN [facility], SCREENING V28.8 [place] [id number] [place] [facility] Oct, /OTHER ANTE. OBGYN [facility], SCREENING V28.8 [place] [id number] [place] [facility] 103 Aug, Hypertension 401.9 and do OBGYN [facility], [place] 9[address] GEST./CONFIRM VIABILITY 656.83 [place] [facility] Aug, [place]BG[place] [address] [place] [facility] 103 Aug, [place] [id number] [place] [facility] 103 Aug, [place] [address] [place] [facility] 103 Aug, [place] [address] UNKNOWN Mar, [place] [facility] 103 Jan, Lichen sclerosus et OBGYN [facility], atrophicus of the vulva [place] 787050617 624.0 [place] [facility] 103 Jan, Lichen sclerosus et OBGYN [facility], atrophicus of the vulva [place] 241210733 624.0 and Rash 782.1 UNKNOWN Jan, [place] [facility] 103 Jan, DERMATITIS NEC 692.89 and OBGYN [facility], Boil of skin [place] 099251548 subcutaneous tissue NOS 680.9 [facility] 103 Jan, OVARIAN CYST NEC/ NOS 620.2 OBGYN [facility], [place] [address] [facility] 103 18 Jan, 2005 Vaginitis and OBGYN [facility], vulvovaginitis, [place] 5750913[address] unspecified 616.10 [place] [facility] 103 Dec, OVARIAN CYST NEC/ NOS 620.2 OBGYN [facility], and Hypertension 401.9 [place] [id number] [facility] 103 Dec, OVARIAN CYST NEC/ NOS 620.2 [facility] [place] [id number] [facility] 103 Dec, Well Adult exam V 70.0 ; [facility], ROUTINE LOCK [place]TER [place] [id number] V72.31 ; OVARIAN CYST NEC/NOS 620.2 ; Infertility, female, of other specified origin 628.8 and Hypertension 401.9 IMMUNIZATIONS No Known Immunizations SOCIAL HISTORY Never Assessed REASON FOR REFERRAL FUNCTIONAL STATUS PLAN OF CARE VITAL SIGNS MEDICATIONS Medication Instructions Dosage Frequency Start Date End Date Duration Status Magda-Be 0.35 mg orally once a day 1 tab(s) 24h 17 Jan, 28 days Active 2017 PROCEDURES No Known procedures RESULTS No Results REASON FOR VISIT OCP refill Insurance Providers [facility] Member Patient Patient Patient Patient Patient Subscriber Subscriber Subscriber Group Insurance Plan Plan Plan Plan ID Relationship Address Phone Name Date of ID Name Date of No Type Insurance Insurance Insurance Coverage to Subscriber Address Phone Name Dates [facility] [phone] [facility] self Leila [id number] [place] [address] [facility] [address] MEDICAL (GENERAL) HISTORY Type Description Date Medical [...]
--- OUTSIDE RECORDS SUMMARY | 2018-03-07 11:18 | XMS REPORT ---
:1975 Author Organization [facility] Address [address] [place] [address] Care Team Providers Name Role Phone Cindy Garay Unavailable Unavailable PROBLEMS Type Condition ICD9-CM [id number] Onset Condition SNOMED Code Code Code Dates Status Problem Obesity, unspecified E66.9 Active 431488851 Problem Phlebitis and I80.9 Active 988219482 thrombophlebitis of unspecified site Problem Body mass index Z68.41 Active 392470943 (BMI) 40.0-44.9, adult Problem Polycystic ovarian E28.2 Active 91537492 syndrome Problem Subacute and chronic N76.3 Active 866218305 vulvitis Problem Nontoxic goiter, E04.9 Active 097584707 unspecified Problem Lichen simplex L28.0 Active 17778766 chronicus Problem Excessive and N92.0 Active 320242235 frequent menstruation with regular cycle ALLERGIES Substance Reaction Event Type Date Status minocycline rash - hair fell out Drug Allergy Jan, Active Flagyl hives Drug Allergy Jan, Active Keflex erythema nodosum Drug Allergy Jan, Active ENCOUNTERS Encounter Location Date Diagnosis [facility] Apr, OBGYN [place], [place] [id number] [facility] [address] Apr, OBGYN [place], [place] [id number] [facility] Jan, OBGYN [place] [id number] [facility] 28 Dec, [address] [place], gynecological examination [place] [id number] (general) (routine) with abnormal findings Z01.411 ; Lichen simplex chronicus L28.0 ; Excessive and frequent menstruation with regular cycle N92.0 ; Encounter for screening mammogram for malignant neoplasm of breast Z12.31 ; Polycystic ovarian syndrome E28.2 and Body mass index (BMI) 40.0-44.9, adult Z68.41 [facility] Jan, OBGYN [place], [place] [id number] [facility] Nov, OBGYN [place], [place] [id number] [facility] 103 Nov, Lichen simplex chronicus OBGYN [facility], L28.0 [place] [id number] [facility] Nov, OBGYN [place], [place] [id number] [facility] 103 Dec, Encounter for OBGYN [facility] gynecological examination [place] [id number] (general) (routine) without abnormal findings Z01.419 ; Lichen simplex chronicus L28.0 ; Excessive and frequent menstruation with regular cycle N92.0 ; Encounter for screening mammogram for malignant neoplasm of breast Z12.31 and Polycystic ovarian syndrome E28.2 [facility] Dec, OBGYN [place] [id number] [facility] 103 Nov, Excessive and frequent OBGYN [facility], menstruation with regular [place] [address] cycle N92.0 [facility] Oct, OBGYN [place], [place] [id number] [facility] 103 Oct, Lichen simplex chronicus OBGYN [facility], L28.0 and Excessive and [place] [address] frequent menstruation with regular cycle N92.0 [facility] 103 Aug, Noninflammatory disorder OBGYN [facility], of vulva and perineum, [place] [address] unspecified N90.9 [facility] Aug, Excessive and frequent OBGYN [facility], menstruation with regular [place] [address]259[address] cycle N92.0 and Subacute and chronic vulvitis N76.3 [facility] [address] [place], Aug, [facility] [place] [id number] [facility] Aug, Encounter for other OBGYN [facility], general counseling and [place] [id number] advice on contraception Z30.09 [facility] Aug, Excessive and frequent OBGYN [facility], menstruation with regular [place] [address] cycle N92.0 [facility] July, OBGYN [place], [place] [id number] [facility] 103 July, Excessive and frequent OBGYN [facility], menstruation with regular [place] [address]56[address]35[address] cycle N92.0 [facility] 103 July, Excessive and frequent OBGYN [facility], menstruation with [place] [id number] irregular cycle N92.1 [facility] July, OBGYN [place], [place] [id number] [facility] 103 July, Excessive and frequent OBGYN [facility], menstruation with regular [place] [address] cycle N92.0 ; Dysuria R30.0 and Acute vaginitis N76.0 [facility] Jun, OBGYN [place], [place] [id number] [facility] Jan, OBGYN [place] [id number] [facility] Jan, [place]BGYN [place], [place] [id number] [facility] Jan, Irregular menstruation, OBN [facility], unspecified N92.6 ; [place] [id number] Encounter for screening for infections with a predominantly sexual mode of transmission Z11.3 and Subacute and chronic vulvitis N76.3 [facility] 18 Sep, 2015 Encounter for other OBGYN [facility], general counseling and [place] [id number] advice on contraception Z30.09 [facility] 103 21 Aug, 2015 [facility] [place] [id number] (general) (routine) without abnormal findings Z01.419 ; Encounter for screening mammogram for malignant neoplasm of breast Z12.31 ; Nontoxic goiter, unspecified E04.9 and Obesity, unspecified E66.9 [facility] 103 13 Aug, 2015 [place] [id number] [facility] 103 Dec, [place] [id number] [facility] Nov, Candidiasis of vagina [facility], 112.1 [place] [id number] [facility] Oct, VAGINAL DISCHARGE 623.5 [facility], and Vulvitis NOS 616.10 [place] [id number] [facility] 103 Mar, ROUTINE WEB PRESS OPERATOR ASSISTANT EXAMINATION OBN [facility], V72.31 ; STD Screen V74.5 [place] [id number] and CONTRACEPTIVE MANGMT NOS V25.9 [facility] 103 Mar, [place] [id number] [facility] Mar, [place] [id number] [facility] Dec, [place] [id number] [facility] Dec, OBGYN [place], [place] [id number] [facility] Dec, STD Screen V74.5 and OBGYN [facility], Infection by Trichomonas [place] [id number] NOS 131.9 [facility] Oct, OBGYN [place], [place] [id number] [facility] Oct, OBGYN [place], [place] [id number] [facility] Aug, OBGYN [place], [place] [id number] [facility] Aug, Vaginitis 616.10 and OBGYN [facility], Candidal vulvovaginitis [place] [id number] 112.1 [facility] 103 July, VAGINAL DISCHARGE 623.5 OBGYN [place], [place] [id number] [facility] Apr, OBG[place], [place] [id number] [facility] 103 Mar, [facility]normal [facility], radiological or other [place] [id number] exams of body structure, NEC 793.99 and BMI 39.0-39.9,ADULT V85.39 [facility] Mar, [facility]normal [facility], radiological or other [place] [id number] exams of body structure, NEC 793.99 and BMI 40 AND OVER,ADULT V85.4 [facility] Jan, ROUTINE WEB PRESS OPERATOR ASSISTANT EXAMINATION [facility], V72.31 ; BMI [place] [id number] 39.0-39.9,ADULT V85.39 and Abnormal findings on radiological or other exams of body structure, NEC 793.99 [facility] Jan, ROUTINE WEB PRESS OPERATOR ASSISTANT EXAMINATION OBGYN [facility], V72.31 ; PAP SMEAR W/O WEB PRESS OPERATOR ASSISTANT [place] [id number] EXAM V76.2 and SCREEN MAMMOGRAM NEC V76.12 [facility] 103 Dec, Metrorrhagia 626.6 ; OBGYN [facility], Endometrial polyp 621.0 [place] [id number] and Polycystic ovaries 256.4 [facility] Aug, Metrorrhagia 626.6 ; OBGYN [facility], Endometrial polyp 621.0 [place] [id number] and Polycystic ovaries 256.4 [facility] [address] [facility], July, [facility] [place] [id number] [facility] 103 July, Metrorrhagia 626.6 ; OBGYN [facility], Endometrial polyp 621.0 [place] [id number] and Polycystic ovaries 256.4 [facility] Jun, OBGYN [facility], [place] [id number] [facility] Jun, Metrorrhagia 626.6 ; OBGYN [facility], Endometrial polyp 621.0 [place] [id number] and Polycystic ovaries 256.4 [facility] 103 Jun, IRREGULAR MENSTRUATION OBGYN [facility], 626.4 [place] [id number] [facility] Jun, IRREGULAR MENSTRUATION OBGYN [facility], 626.4 [place] [id number] [facility] 103 Jun, IRREGULAR MENSTRUATION OBGYN [facility], 626.4 and Endometrial [place] 299719802 polyp 621.0 [facility] May, IRREGULAR MENSTRUATION OBGYN [facility], 626.4 [place] [id number] [facility] Dec, ROUTINE WEB PRESS OPERATOR ASSISTANT EXAMINATION OBGYN [facility], V72.31 [place] [id number] [facility] Nov, [place]BG[place], [place] [id number] [facility] Oct, OBGYN [place], [place] [id number] [facility] 103 July, Yeast infection 112.9 OBGYN [place], [place] [id number] [facility] Oct, ROUTINE WEB PRESS OPERATOR ASSISTANT EXAMINATION OBGYN [facility], V72.31 [place] [id number] [facility] Aug, BMI 38.0-38.9,ADULT V85.38 OBGYN [place], [place] [id number] [facility] Aug, BMI 39.0-39.9,ADULT V85.39 OBGYN [facility], and Polycystic ovaries [place] [id number] 256.4 [facility] 103 Aug, ROUTINE WEB PRESS OPERATOR ASSISTANT EXAMINATION OBGYN [facility], V72.31 and BMI [place] [id number] 38.0-38.9,ADULT V85.38 [facility] 103 Oct, OBGYN [place], [place] [id number] [facility] 103 Aug, Polycystic ovaries 256.4 OBGYN [facility], and BMI 40 AND OVER,ADULT [place] [id number] V85.4 [facility] 103 Aug, BMI 40 AND OVER, ADULT OBGYN [facility], V85.4 and Polycystic [place] 402982448 ovaries 256.4 [facility] 103 Aug, ROUTINE WEB PRESS OPERATOR ASSISTANT EXAMINATION OBGYN [facility], V72.31 and BMI 40 AND [place] 222229837 OVER,ADULT V85.4 [facility] 103 Oct, Dysuria 788.1 and Acute OBGYN [facility], vaginitis 616.10 [place] [id number] [facility] Aug, OBGYN [place], [place] [id number] [facility] 103 Aug, ROUTINE WEB PRESS OPERATOR ASSISTANT EXAMINATION OBGYN [facility], V72.31 ; Hypertension [place] [id number] 401.9 ; Hyperlipidemia 272.4 and Depression, major NOS 296.00 [facility] Aug, OBGYN [place], [place] [id number] [facility] 103 July, Lichen sclerosus et OBGYN [facility], atrophicus NOS 701.0 [place] [id number] [facility] Jan, OBGYN [place], [place] [id number] [facility] Nov, OBGYN [place], [place] [id number] [facility] Oct, OBGYN [place], [place] [id number] [facility] Oct, OBGYN [place], [place] [id number] [facility] 103 Aug, Fibrocystic disease of OBGYN [facility], breast 610.1 and [place] [id number] DEPRESSION 648.44 [facility] Aug, OBGYN [place], [place] [id number] [facility] 103 Aug, ROUTINE WEB PRESS OPERATOR ASSISTANT EXAMINATION OBGYN [facility], V72.31 ; Incontinence [place] [id number] 788.30 and DEPRESSION 648.44 [facility] 103 Apr, OBGYN [place], [place] [id number] [facility] 103 27 Apr, 2006 CARE- ROUTINE OBGYN [facility], V24.2 and Hypertension [place] [id number] 401.9 [facility] Mar, OBGYN [place], [place] [id number] [facility] 103 Mar, Cracked nipple, OBGYN [facility], 676.14 ; Hypertension [place] [id number] 401.9 and Rash 782.1 [facility] Mar, OBGYN [place], [place] [id number] [facility] 103 Mar, [facility]ohydramnios, [facility], antepartum 658.03 and [place] [id number] Chronic hypertension NOS complicating , antepartum 642.03 [facility] 103 Mar, Oligohydramnios, [facility], antepartum 658.03 and [place] [id number] Chronic hypertension NOS complicating , antepartum 642.03 [facility] 103 Mar, [place] [id number] [facility] Mar, [place] [id number] [facility] Mar, [place] [id number] [facility] 103 Mar, Oligohydramnios, [facility], antepartum 658.03 and [place] [id number] Chronic hypertension NOS complicating , antepartum 642.03 [facility] 103 Mar, [place] [id number] [facility] 103 Mar, Hypertension 401.9 and OBGYN [facility], Chronic hypertension NOS [place] [id number] complicating , antepartum 642.03 [facility] Jan, OBGYN [place], [place] [id number] [facility] 103 Jan, Chronic hypertension NOS OBGYN [facility], complicating , [place] [id number] antepartum 642.03 and Hypertension 401.9 [facility] 103 Jan, OBGYN [place], [place] [id number] [facility] Jan, OBGYN [place], [place] [id number] [facility] Jan, [place] [id number] [facility] 103 Jan, Hypertension 401.9 and OBGYN [facility], Chronic hypertension NOS [place] [id number] complicating , antepartum 642.03 [facility] 103 Jan, OBGYN [place], [place] [id number] [facility] 103 Jan, Hypertension 401.9 [place] [id number] [facility] Jan, UTI/Vaginitis in OBN [facility], , antepartum [place] [id number] condition or complication 646.63 [facility] Jan, OBGYN [place], [place] [id number] [facility] 103 Jan, OBG[place], [place] [id number] [facility] Jan, OBGYN [place], [place] [id number] [facility] Jan, OBGYN [place], [place] [id number] [facility] 103 Jan, OBGYN [place], [place] [id number] [facility] Jan, OBG[place], [place] [id number] [facility] 103 Jan, OBGYN [place], [place] [id number] [facility] Jan, OBGYN [place], [place] [id number] [facility] 103 Jan, Hypertension 401.9 OBGYN [place], [place] [id number] [facility] 103 Jan, Hypertension 401.9 OBGYN [place], [place] [id number] [facility] 103 Dec, OBGYN [place], [place] [id number] [facility] 103 Dec, OBGYN [place], [place] [id number] [facility] 103 Dec, OBGYN [place], [place] [id number] [facility] 103 Nov, OBGYN [place], [place] [id number] [facility] Nov, OBGYN [place], [place] [id number] [facility] Nov, /OTHER ANTE. OBGYN [facility], SCREENING V28.8 [place] [id number] [facility] Oct, /OTHER ANTE. OBGYN [facility], SCREENING V28.8 [place] [id number] [facility] 103 Aug, Hypertension 401.9 and do OBGYN [facility], not use UNCERTAIN [place] [id number] GEST./CONFIRM VIABILITY 656.83 [facility] Aug, OBG[place] [id number] [facility] 103 Aug, OBGYN [place], [place] [id number] [facility] Aug, OBGYN [place], [place] [id number] [facility] Aug, OBGYN [place], [place] [id number] UNKNOWN Mar, [facility] 103 Jan, Lichen sclerosus et OBGYN [facility], atrophicus of the vulva [place] 726685207 624.0 [facility] 103 Jan, Lichen sclerosus et OBGYN [facility], atrophicus of the vulva [place] [id number] 624.0 and Rash 782.1 UNKNOWN Jan, [facility] 103 Jan, DERMATITIS NEC 692.89 and OBGYN [facility], Boil of skin and [place] 915185293 subcutaneous tissue NOS 680.9 [facility] Jan, OVARIAN CYST NEC/ NOS 620.2 [place] [id number] [facility] 103 Jan, Vaginitis and OBGYN [facility], vulvovaginitis, [place] 776796002 unspecified 616.10 [facility] 103 Dec, OVARIAN CYST NEC/ NOS 620.2 OBGYN [facility], and Hypertension 401.9 [place] [id number] [facility] 103 Dec, OVARIAN CYST NEC/ NOS 620.2 OBGYN [place], [place] [id number] [facility] Dec, Well Adult exam V 70.0 ; [facility], ROUTINE WEB PRESS OPERATOR ASSISTANT EXAMINATION [place] [id number] V72.31 ; OVARIAN CYST NEC/NOS 620.2 ; Infertility, female, of other specified origin 628.8 and Hypertension 401.9 IMMUNIZATIONS No Known Immunizations SOCIAL HISTORY Never Assessed REASON FOR REFERRAL FUNCTIONAL STATUS PLAN OF CARE Activity Details Follow Up US w/fu same day vulvar colpo, 1 year annual, schedule Mammogram Reason: Pending Test Mammogram, Routine Screening - bilateral VITAL SIGNS Height 62 in 2018-02-27 Weight 238 lbs 2018-02-27 BMI 43.53 kg/m2 2018-02-27 Blood pressure systolic 116 mm Hg 2018-02-27 Blood pressure diastolic 72 mm Hg 2018-02-27 MEDICATIONS Medication Instructions Dosage Frequency Start End Date Duration Status Date clobetasol applied 1 jennifer 30 days Active topical 0.05% topically 2 times a day x 3 weeks when symptomatic, then weekly Magda-Be 0.35 mg orally once a 1 tab(s) 24h 90 days Active day clindamycin applied 1 jennifer 12h 30 day(s) Active topical 1% topically 2 times a day Vitamin C 500 mg orally once a 1 tab(s) 24h 30 day(s) Active day multivitamin orally once a 1 tab(s) 24h Active Multiple day Vitamins venlafaxine 37.5 orally qd 1 tab 24h Active mg Calcium 600+D orally qd 1 tab(s) 24h 30 day(s) Active 600 mg-200 units folic acid 1 mg orally once a 1 tab(s) 24h Active day Fish oil 1 tab 12h Active Plaquenil 200 mg orally BID 1 tab(s) 12h Active methotrexate 2.5 po once a week 8 tabs Active Crestor 5 mg 1 tab 24h Active PROCEDURES No Known procedures RESULTS No Results REASON FOR VISIT annual, Has pt had mammo 2016 or 2017?- not in [facility], Has pt been using clobetasol, Needs toreschedule vulvar colpo, AUB?- yes had period 02/02/18 for 3 weeks Insurance Providers [facility] Member Patient Patient Patient Patient Patient Subscriber Subscriber Subscriber Group Insurance Plan Plan Plan Plan ID Relationship Address Phone Name Date of ID Name Date of No Type Insurance Insurance Insurance Coverage to Subscriber Address Phone Name Dates [facility] [phone] [facility] self Leila [id number] [place] [address] [facility] [id number] MEDICAL (GENERAL) HISTORY Type Description Date Medical [...] Hysteroscopy/D&C 07-15-12 Surgical History hysteroscopy, D&C 08/27/16 Surgical History Left shoulder surgery 03/2017 Hospitalization History allergic reaction to med. 10/2007 Hospitalization History mono 10/2007 Hospitalization History childbirth
[2018-03-07 11:25] VITALS: BP 115/73
--- NOTE | 2018-03-07 12:28 | UC ---
UC General HPI - HPI Summary HPI Summary: PT C/O A SORE THROAT, COUGH AND CHEST CONGESTION X 4 DAYS. STARTED TO IMPROVE BUT THEN GOT MUCH WORSE. NO FEVER. "HX SLIGHT ASTHMA". NO FEVER, CP. ON IMMUNE SUPPRESSIVE MEDICATION FOR RA AND LUPUS. 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 PMH/Surg Hx/FS Hx/Imm Hx - Additional Past Medical History Additional PMH: RA, Lupus Endocrine History: Dyslipidemia Cardiovascular History: Hypertension GI/ History: Gastroesophageal Reflux - Surgical History Surgical History: Yes Surgery Procedure, Year, and Place: left shoulder 03/2017 - Family History Known Family History: Positive: Hypertension - Social History Alcohol Use: Rare Substance Use Type: None Smoking Status (MU): Former Smoker Have You Smoked in the Last Year: No When Did the Patient Quit Smoking/Using Tobacco: 2005 - Immunization History Most Recent Influenza Vaccination: no 2016 Review of Systems All Other Systems Reviewed And Are Negative: Yes ENT: Positive: Sore Throat Respiratory: Positive: Cough Physical Exam Triage Information Reviewed: Yes Appearance: Well-Appearing Vital Signs: Initial Vital Signs Temp 98.6 F 03/07/18 11:20 Pulse 85 03/07/18 11:20 Resp 19 03/07/18 11:20 BP 115/73 03/07/18 11:20 Pulse Ox 98 03/07/18 11:20 Vital Signs Reviewed: Yes Eyes: Positive: Conjunctiva Clear ENT: Positive: Pharyngeal erythema, TMs normal, Uvula midline. Negative: Nasal congestion, Nasal drainage, Trismus, Muffled voice Neck: Positive: Supple, Nontender, Enlarged Nodes @ - PERITONSILAR Respiratory: Positive: Lungs clear, No accessory muscle use, Decreased breath sounds - SLIGHTLY, Other: - COUGH IS CONGESTED Cardiovascular: Positive: RRR, No Murmur Abdomen Description: Positive: Nontender, No Organomegaly, Soft Bowel Sounds: Positive: Present Musculoskeletal: Positive: ROM Intact Neurological: Positive: Alert Psychological: Positive: Age Appropriate Behavior Skin Exam: Normal Course/Dx - Course Course Of Treatment: PT ON IMMUNE SUPPRESSIVE MEDICATION THUS WILL COVER FOR PRESUMPTIVE BACTERIAL INFECTION. SHE HAS AN ALBUTEROL INHALER ALREADY. - Diagnoses Provider Diagnosis: Pharyngitis, Cough in adult Discharge - Sign-Out/Discharge Documenting (check all that apply): Patient Departure All imaging exams completed and their final reports reviewed: No Studies - Discharge Plan Condition: Stable Disposition: HOME Prescriptions: Azithromycin TAB* [Zithromax TAB (Z-DANN) 250 mg #6 tabs] 2 tab PO .TODAY, THEN 1 DAILY #1 dann Patient Education Materials: Pharyngitis (ED), Acute Cough (ED) Referrals: Elizabeth Hazel MD [Primary Care Provider] - 5 Days Additional Instructions: USE ALBUTEROL INHALER 2 PUFFS EVERY 6 HOURS - Billing Disposition and Condition Condition: STABLE Disposition: Home - Attestation Statements Provider Attestation: I was available for consult. This patient was seen by the LEONID[facility]. The patient was not presented to, seen by, or examined by me. EK
== END 2018-03-07 12:34 | disposition home or self-care (01) ==
LOC: UCCORT 11:10
DX: J02.9 Acute pharyngitis, unspecified (principal); R05 Cough; Z88.1 Allergy status to other antibiotic agents; I10 Essential (primary) hypertension; Z87.891 Personal history of nicotine dependence
CPT/HCPCS: 99212; G0463

== ENCOUNTER 2019-02-19 15:19 | Emergency (ER) | payer BC ==
--- OUTSIDE RECORDS SUMMARY | 2019-02-19 15:26 | XMS REPORT | Continuity of Care Document ---
:1975 External Reference #:[id number] Author Name Michelle Costa MD Address [address] [place] [address] Care Team Providers Name Role Phone Gurdeep Robbins MD - Internal Medicine Care Team Information Network Director [phone] Elizabeth Hazel MD - Internal Medicine Care Team Information Network Director Problems Active Problems Provider Date Neck sprain Onset: 11/20/2011 Strain of rotator cuff capsule Onset: 11/20/2011 Essential hypertension Onset: 05/13/2011 Benign essential hypertension Onset: 02/07/2011 Depressive disorder Onset: 02/07/2011 Insomnia Onset: 02/07/2011 Systemic lupus erythematosus Onset: 02/07/2011 Erythema nodosum Onset: 02/07/2011 Social History Type Date Description Comments Sex Unknown Tobacco Use Start: Unknown End: Unknown Patient is a former smoker Smoking Status Reviewed: 06/02/18 Patient is a former smoker Allergies, Adverse Reactions, Alerts Active Allergies Reaction Severity Comments Date Minocycline Free Text 03/06/2018 Cephalexin Free Text 03/06/2018 Metronidazole 03/06/2018 Medications Active Medications SIG Qnty Indications Ordering Provider Date Omeprazole 1 by mouth 30caps 530.81 David 07/11/[address] every day MD Guicho Valsartan-Hydrochloroth 1 by mouth 30tabs 401.9 David 03/21/2014 iazide every day MD Guicho 160-25mg Tablets Venlafaxine HCL ER 1 po daily 90caps 311 David 05/26/2012 37.5mg MD Guicho Caps ER 24HR Crestor 1 po qd 90tabs 272.4 David 05/26/2012 5mg Tablets MD Guicho Baclofen one tab every 8 45tabs 840.4 David 10/21/2011 10mg Tablets hours as needed MD Guicho for pain Calcium 600 David 02/07/2011 600mg Tablets MD Guicho Fish Oil Ultra 4 tabs by mouth David 02/07/2011 1000mg every day MD Guicho Capsules Clindamycin Phosphate Desirae, 1% MD Katherine Gel Sharobel Unknown 0.35mg Tablets Plaquenil bid PO Unknown 200mg Tablets Methotrexate Sodium 8 tabs once Unknown 2.5mg weekly Tablets Desoximetasone apply prn Unknown 0.05% Ointment Clobetasol Propionate E apply weekly Unknown prn 0.05% Cream Medications Administered in Office Medication SIG Qnty Indications Ordering Provider Date Injection Hyaluronan Or Michelle Costa MD 01/12/2019 Derivative, Euflexxa Per Dose Injection Injection Hyaluronan Or Michelle Costa MD 01/05/2019 Derivative, Euflexxa Per Dose Injection Injection Hyaluronan Or Michelle Costa MD 12/29/2018 Derivative, Euflexxa Per Dose Injection Depomedrol 40MG Michelle Costa MD 08/04/2018 Injection Immunizations CPT Code Status Date Vaccine Lot # [id number] Given 07/03/2012 Tdap - Tetanus/Diptheria/Acellular Pertussis Vital Signs Date Vital Result Comment 06/02/2018 2:57pm Height 64 inches 5'4" Weight 244.00 lb Heart Rate 72 /min BP Systolic 121 mmHg BP Diastolic 82 mmHg BMI (Body Mass Index) 41.9 kg/m2 08/15/2014 10:28am Weight 223.50 lb BP Systolic 122 mmHg BP Diastolic 84 mmHg Results Description No Information Available Procedures Date Code Description Status 01/12/2019 Inj/Aspir Major JT Or Bursa W/ US Completed 01/05/2019 Inj/Aspir Major JT Or Bursa W/ US Completed 12/29/2018 Inj/Aspir Major JT Or Bursa W/ US Completed Medical Devices Description No Information Available Encounters Type Date Location Provider Dx Diagnosis Office Visit 11/24/2018 Sports Medicine Michelle Costa, M17.12 Unilateral primary 3:50p Of Charge Coordinator AT osteoarthritis, [place] left knee M25.562 Pain in left knee Office Visit 09/22/2018 3:50p Sports Medicine Michelle Costa, M25.562 Pain in left Of Charge Coordinator AT knee [place] M25.462 Effusion, left knee Assessments Date Code Description Provider 02/09/2019 M17.12 Unilateral primary osteoarthritis, left knee Michelle Costa MD 01/12/2019 M17.12 Unilateral primary osteoarthritis, left knee Michelle Costa MD 01/05/2019 M17.12 Unilateral primary osteoarthritis, left knee Michelle Costa MD 12/29/2018 M17.12 Unilateral primary osteoarthritis, left knee Michelle Costa MD 11/24/2018 M17.12 Unilateral primary osteoarthritis, left knee Michelle Costa MD 11/24/2018 M25.562 Pain in left knee Michelle Costa MD 09/22/2018 M25.562 Pain in left knee Michelle Costa MD 09/22/2018 M25.462 Effusion, left knee Michelle Costa MD Plan of Treatment 06/02/2018 - Michelle Costa, MDM54.16 Radiculopathy, lumbar regionNew Therapy: Physical TherapyComments:The patient has been having 6 months of left leg pain. Her symptoms are consistent with a left sided lumbar radiculopathy. I recommended that she start physical therapy with a focus on core and hip strengthening. She should be as active as tolerated with walking, swimming, or elliptical. She may use ice or heat as needed for comfort. She may continue to take Ibuprofen on occasion as neededfor pain. She is to follow-up with me in 4 to 6 weeks for a recheck. If her symptoms do not improve, then MRI of the lumbar spine should be considered.M54.5 Low back painM79.605 Pain in left legZ68.41 Body mass index (BMI) 40.0-44.9, adultComments:The patient has an elevated BMI that puts her into the obese category. Weight loss would be beneficial in helping to decrease her back pain. I recommended that she continue to be physically active. [facility] for a [facility] consult. Functional Status Description No Information Available Mental Status Description No Information Available Referrals Description No Information Available
--- OUTSIDE RECORDS SUMMARY | 2019-02-19 15:26 | XMS REPORT | Continuity of Care Document ---
:1975 External Reference #:[id number] Author Name Michelle Costa MD Address [address] [place] [address] Care Team Providers Name Role Phone Gurdeep Robbins MD - Internal Medicine Care Team Information Mixer Operator Vacuum Pan Salt Elizabeth Hazel MD - Internal Medicine Care Team Information Mixer Operator Vacuum Pan Salt [phone] Problems Active Problems Provider Date Neck sprain [...] Date Injection Hyaluronan Or Michelle Costa MD 01/05/2019 Derivative, Euflexxa Per Dose Injection Injection Hyaluronan Or Michelle Costa MD 12/29/2018 Derivative, Euflexxa Per Dose Injection Depomedrol 40MG Michelle Costa MD 08/04/2018 Injection Immunizations CPT Code Status Date Vaccine Lot # [id number] Given 07/03/2012 Tdap - Tetanus/Diptheria/Acellular Pertussis Vital Signs Date Vital Result Comment 06/02/2018 2:57pm Height 64 inches 5'4" Weight 244.00 lb Heart Rate 72 /min BP Systolic 121 mmHg BP Diastolic 82 mmHg BMI (Body Mass Index) 41.9 kg/m2 08/15/2014 10:28am Weight 223.50 lb BP Systolic 122 mmHg BP Diastolic 84 mmHg Results Test Acquired Date Facility Test Result H/L Range Note Xray 08/03/2018 [facility] MRI Knee Left W/O <pending> [address] [place] [address] [phone] Procedures Date Code Description Status 01/05/2019 Inj/Aspir Major JT Or Bursa W/ US Completed 12/29/2018 Inj/Aspir Major JT Or Bursa W/ US Completed 08/04/2018 Inj/Aspir Major JT Or Bursa W/ US Completed Medical Devices Description No Information Available Encounters Type Date Location Provider Dx Diagnosis Office Visit 11/24/2018 Sports Medicine Michelle Costa M17.12 Unilateral primary 3:50p Of Environmental Web Crawler AT osteoarthritis, [place] left knee M25.562 Pain in left knee Office Visit 09/22/2018 3:50p Sports Medicine Michelle Costa M25.562 Pain in left Of Environmental Web Crawler AT [facility] M25.462 Effusion, left knee Office Visit 08/04/2018 3:50p Sports Medicine Michelle Costa M25.562 Pain in left Of Environmental Web Crawler AT [place] knee [place] M25.462 Effusion, left knee Office Visit 07/21/2018 4:10p Sports Michelle M54.16 Radiculopathy, Medicine MD Julissa lumbar region Environmental Web Crawler AT [place] M25.562 Pain in left knee Assessments Date Code Description Provider 01/12/2019 M17.12 Unilateral primary osteoarthritis, left knee [...] M25.462 Effusion, left knee Michelle Costa MD 08/04/2018 M25.562 Pain in left knee Michelle Costa MD 08/04/2018 M25.462 Effusion, left knee Michelle Costa MD 07/21/2018 M54.16 Radiculopathy, lumbar region Michelle Costa MD 07/21/2018 M25.562 Pain in left knee Michelle Costa MD Plan of Treatment 06/02/2018 - Michelle Costa MDM54.16 Radiculopathy, lumbar regionNew Therapy: Physical TherapyComments:The [...]
--- OUTSIDE RECORDS SUMMARY | 2019-02-19 15:26 | XMS REPORT | Continuity of Care Document ---
:1975 External Reference #:[id number] Author Name Michelle Costa MD Address [address] [place] [address] Care Team Providers Name Role Phone Gurdeep Robbins MD - Internal Medicine Care Team Information Electric Welder Elizabeth Hazel MD - Internal Medicine Care Team Information Electric Welder [phone] Problems Active Problems Provider Date Neck sprain [...] Medication SIG Qnty Indications Ordering Provider Date Depomedrol 40MG Michelle Costa MD 08/04/2018 Injection Immunizations CPT Code Status Date Vaccine Lot # [id number] Given 07/03/2012 Tdap - Tetanus/Diptheria/Acellular Pertussis Vital Signs Date Vital Result Comment 06/02/2018 2:57pm Height 64 inches 5'4" Weight 244.00 lb Heart Rate 72 /min BP Systolic 121 mmHg BP Diastolic 82 mmHg BMI (Body Mass Index) 41.9 kg/m2 08/15/2014 10:28am Weight 223.50 lb BP Systolic 122 mmHg BP Diastolic 84 mmHg Results Test Date Facility Test Result H/L Range Note Xray 08/03/2018 [facility] MRI Knee Left W/O <pending> [address] [place] [address] [phone] Procedures Date Code Description Status 08/04/2018 89621 Inj/Aspir Major JT Or Bursa W/ US Completed Medical Devices Description No Information Available Encounters Type Date Location Provider Dx Diagnosis Office Visit 11/24/2018 Sports Medicine Michelle Costa M17.12 Unilateral primary 3:50p Of Furrier Apprentice AT osteoarthritisMoe left knee M25.562 Pain in left knee Office Visit 09/22/2018 3:50p Sports Medicine Michelle Costa M25.562 Pain in left Of Furrier Apprentice AT knee [place] M25.462 Effusion, left knee Office Visit 08/04/2018 3:50p Sports Medicine Michelle Costa M25.562 Pain in left Of [facility] AT [place] knee [place] M25.462 Effusion, left knee Office Visit 07/21/2018 4:10p Sports Michelle Ragsdale4.16 Radiculopathy, Medicine Andrea Costa MD lumbar region [facility] AT [place] M25.562 Pain in left knee Office Visit 06/30/2018 3:50p Sports Michelle Ragsdale4.16 Radiculopathy, Medicine Andrea Costa MD lumbar region [facility] AT [place] Assessments Date Code Description Provider 12/29/2018 M17.12 Unilateral primary osteoarthritis, left knee [...] Pain in left knee Michelle Costa MD 06/30/2018 M54.16 Radiculopathy, lumbar region Michelle Costa MD Plan of Treatment Future Appointment(s):01/12/2019 3:50 pm - Michlele Costa MD at [facility] AT Qnjnolns89/05/2019 2:30 pm - Michelle Costa MD at [facility] AT [place]03/02/2019 - Michelle Costa MDM54.16 Radiculopathy, lumbar regionNew Therapy:Physical TherapyComments:The patient has been having 6 months [...]
[2019-02-19 15:45] VITALS: BP 119/74
--- NOTE | 2019-02-19 16:40 | UC ---
Throat Pain/Nasal John HPI - HPI Summary HPI Summary: 43-year-old woman comes in with chief complaint of a stretcher tract infection symptoms for 5 days. Started with a runny nose nasal congestion and sore throat and now it has gone down into her chest. She does have sinus pressure. No ear pain. She has chest congestion. Patient has rheumatoid arthritis and is on methotrexate and Plaquenil and therefore is immunocompromised. She has used albuterol in the past when she has a bronchitis but she has not tried this time. - History of Current Complaint Chief Complaint: UCGeneralIllness Stated Complaint: SINUSES,CHEST CONGESTION Time Seen by Provider: 02/19/19 16:31 Hx Last Menstrual Period: 02/02/18 Pain Intensity: 2 - Allergies/Home Medications Allergies/Adverse Reactions: Allergies Allergy/AdvReac Type Severity Reaction Status Date / Time cephalexin [From Keflex] Allergy Intermediate lymphadenop Verified 02/19/19 15: 45 thy metronidazole [From Flagyl] Allergy Intermediate Hives Verified 02/19/19 15:45 minocycline AdvReac drug Verified 02/19/19 15:45 induced lupus PMH/Surg Hx/FS Hx/Imm Hx Previously Healthy: Yes - rheumatoid arthritis, lupus Respiratory History: Asthma - Surgical History Surgical History: Yes Surgery Procedure, Year, and Place: left shoulder 03/2017 - Family History Known Family History: Positive: Hypertension - Social History Alcohol Use: Rare Substance Use Type: None Smoking Status (MU): Former Smoker Have You Smoked in the Last Year: No When Did the Patient Quit Smoking/Using Tobacco: 2006 - Immunization History Most Recent Influenza Vaccination: no 2016 Review of Systems All Other Systems Reviewed And Are Negative: Yes Constitutional: Positive: Other - SEE HPI Skin: Positive: Negative Eyes: Positive: Negative ENT: Positive: Sore Throat, Nasal Discharge, Sinus Congestion, Sinus Pain/ Tenderness Respiratory: Positive: Cough, Other - SEE HPI Cardiovascular: Positive: Negative Gastrointestinal: Positive: Negative Motor: Positive: Negative Neurovascular: Positive: Negative Musculoskeletal: Positive: Negative Neurological: Positive: Negative Psychological: Positive: Negative Is Patient Immunocompromised?: Yes - on methotrexate and Plaquenil for rheumatoid arthritis Physical Exam Triage Information Reviewed: Yes Appearance: No Pain Distress, Well-Nourished, Ill-Appearing - MILD Vital Signs: Initial Vital Signs Temp 99.7 F 02/19/19 15:40 Pulse 70 02/19/19 15:40 Resp 18 02/19/19 15:40 BP 119/74 02/19/19 15:40 Pulse Ox 100 02/19/19 15:40 Vital Signs Reviewed: Yes Eye Exam: Normal Eyes: Positive: Conjunctiva Clear ENT: Positive: Pharyngeal erythema, Nasal congestion, Nasal drainage, TMs normal Neck: Positive: Supple Respiratory: Positive: Lungs clear, Normal breath sounds, No respiratory distress Cardiovascular: Positive: RRR Musculoskeletal: Positive: Strength Intact, ROM Intact Neurological: Positive: Alert, Muscle Tone Normal Psychological: Positive: Age Appropriate Behavior Skin Exam: Normal Throat Pain/Nasal Course/Dx - Course Course Of Treatment: Patient is potentially immunocompromised because she is on methotrexate and Plaquenil. We discussed viral versus bacterial infections and at this time patient prefers to be on an antibiotic. Patient reports that azithromycin usually helps with her infections. We discussed getting reevaluated if worsening or not improving. - Differential Dx/Diagnosis Provider Diagnosis: Bronchitis, Upper respiratory infection Discharge ED - Sign-Out/Discharge Documenting (check all that apply): Patient Departure All imaging exams completed and their final reports reviewed: No Studies - Discharge Plan Condition: Stable Disposition: HOME Prescriptions: Azithromyxin DANN (NF) [Z-Dann (Zithromax) 250 mg tabs #6] 2 tab PO .TODAY, THEN 1 DAILY #6 tab Patient Education Materials: Upper Respiratory Infection (ED), Acute Bronchitis (ED) Referrals: Elizabeth Hazel MD [Primary Care Provider] - Additional Instructions: FOLLOW UP WITH YOUR DOCTOR IF NOT COMPLETELY IMPROVED. GET REEVALUATED SOONER IF NOT IMPROVING OR WORSE OR ANY QUESTIONS OR CONCERNS. - Billing Disposition and Condition Condition: STABLE Disposition: Home
== END 2019-02-19 16:45 | disposition home or self-care (01) ==
LOC: UCCORT 15:19
DX: J45.909 Unspecified asthma, uncomplicated (principal); J06.9 Acute upper respiratory infection, unspecified; Z88.1 Allergy status to other antibiotic agents; Z87.891 Personal history of nicotine dependence
CPT/HCPCS: 99212; G0463